=== PATIENT | female | born 1960 | race Two or more races ===

== ENCOUNTER → 2020-11-02 | Outpatient (CLI) | payer OTHER ==
[~2020-11-02] MED LIST: CETI10TA16 PO; DIFL5DRO2 OP; FLUT1DIS3 IH; HYDR200T5 PO; LISI-334 PO; MOME17SP NS; NAPR500T8 PO; PROVENTIL HFA6.7 GM IH; ROSU20TA28 PO
== END ==
LOC: LAB 09:51
PROVIDERS: ATTEND Physician Assistant Medical
DX: M05.9 Rheumatoid arthritis with rheumatoid factor, unspecified (principal); Z79.899 Other long term (current) drug therapy
CPT/HCPCS: 86481

== ENCOUNTER → 2021-10-02 | Outpatient (CLI) | payer OTHER ==
[~2021-10-02] MED LIST changes: +GADOTERATE 7.5 MMOL/15ML VIAL. IVP ONE; -LISI-334 PO; +LISI20TA18 PO; -MOME17SP NS; +MOME17SP5 NS
--- NOTE | 2021-10-02 12:02 | RAD ---
MRI FACE/NECK WITHOUT AND WITH IV CONTRAST- Date: 10/02/2021 8:25 AM Indication: LYMPH NODES ENLARGED, SUBMANDIBULAR GLAND MASS, THYROID NODULE Comparison: None. Technique: Multiplanar multisequence MRI of the brain was performed with and without intravenous cont rast using the standard protocol. 15 cc Clariscan contrast was administered intravenously during the exam. Findings: Few mildly enlarged cervical lymph nodes. The parotid, submandibular, and thyroid glands are normal. The muscles of the neck are normal. Vessels of the neck demonstrate normal course, caliber, and enhan cement. The visualized aerodigestive tract is normal. The visualized posterior fossa and brain is unremarkable. The visualized orbits and paranasal sinuses are normal. Mild multilevel degenerative disc desiccation. Multilevel spinal canal stenosis secondary to disc pro trusions and marginal osteophytes. Multilevel neural foraminal narrowing secondary to uncovertebral a nd facet arthrosis. The visualized lung apices are clear. IMPRESSION: 1. Few mildly enlarged cervical lymph nodes seen bilaterally. These are of indeterminate etiology but may be reactive. Clinical follow-up is recommended, and additional imaging may be warranted for pers istent or enlarging lymphadenopathy. 2. No thyroid nodule is seen. Consider thyroid ultrasound if clinical concern persists. 3. No submandibular masses seen. Electronically signed by: Slim Martinez MD (10/02/2021 12:00 PM) [id number]
== END ==
LOC: MRI 11:18
PROVIDERS: ATTEND Physician Assistant Medical
DX: R59.0 Localized enlarged lymph nodes (principal); K11.8 Other diseases of salivary glands; E04.1 Nontoxic single thyroid nodule; M47.819 Spondylosis without myelopathy or radiculopathy, site unspecified
CPT/HCPCS: 70543; A9575